=== PATIENT | male | born 1980 | race Caucasian/White ===

== ENCOUNTER 2024-04-08 13:07 | Inpatient (IN) | payer MEDICARE, OTHER ==
[~2024-04-08] VITALS: Ht 170.2 cm; Wt 125.9 kg
[~2024-04-08 13:07] MED LIST: FLUO60SO3 TP
[2024-04-08] MEDS: ONDANSETRON HCL/PF 4 MG/2 ML VIAL IVP ONE (14:15)
[2024-04-08] MEDS ORDERED: MORPHINE SULFATE INJ 4 MG/ML DISP.SYRIN ONE (14:17)
[2024-04-08] MEDS ORDERED: ONDANSETRON HCL/PF 4 MG/2 ML VIAL ONE (14:17)
[2024-04-08] MEDS: MORPHINE SULFATE INJ 2 MG/ML DISP.SYRIN IV ONE (14:20)
[2024-04-08] MEDS: IV NS 0.9% 1,000 ML BAG IV ONE (14:25)
[2024-04-08 14:29] LABS: BASOPHILS % (AUTO) 0.4 % (0.0-2.0); HEMATOCRIT 43 % (39-51); HEMOGLOBIN 14.1 g/dL (13.5-17.5); LYMPHOCYTES # (AUTO) 1.1 K/uL (0.8-4.8); MEAN CORPUSCULAR HEMOGLOBIN 31 PG (26.0-33.0); MEAN CORPUSCULAR HGB CONC 33 g/dl (31.0-36.0); MEAN CORPUSCULAR VOLUME 94 fL (80-96); MONOCYTES # (AUTO) 1.1 K/uL (0.1-1.30); MONOCYTES % (AUTO) 10.7 % (2.0-12.0); NEUTROPHILS # (AUTO) 8.4 K/uL (1.8-8.9); NEUTROPHILS % (AUTO) 78.9 % (43.0-81.0); PLATELET COUNT (AUTO) 206 K/uL (150-450); RED BLOOD CELL COUNT(AUTO) 4.54 MIL/uL (4.5-6.0); RED CELL DISTRIBUTION WIDTH 12.9 % (11.5-15.0); WHITE BLOOD COUNT (AUTO) 10.6 K/uL (4.3-11.0)
[2024-04-08 14:42] LABS: CREATININE 0.9 mg/dL (0.6-1.3); POTASSIUM 3.9 mmol/L (3.5-5.1)
[2024-04-08 14:49] LABS: ALBUMIN 3.7 g/dL (3.4-5.0); BILIRUBIN,DIRECT 0.2 mg/dL (0.0-0.2); BILIRUBIN,TOTAL 0.4 mg/dL (0.2-1.0); TOTAL PROTEIN, SERUM 7.9 g/dL (6.4-8.2)
[2024-04-08] MEDS: CEFEPIME 2 GM in IV D5W 100 ML IV STA (15:51)
[2024-04-08] MEDS ORDERED: Z GUARD REMEDY 4 OZ OINT TP PRN (16:30)
[2024-04-08] MEDS ORDERED: MAG HYDROX/AL HYDROX/SIMETH 30 ML UDC PO PRN (16:30)
[2024-04-08] MEDS: METRONIDAZOLE 500MG/ NS 100ML 500 MG in PREMIX 1 EA IV SCH (16:30)
[2024-04-08] MEDS ORDERED: MAGNESIUM HYDROXIDE 30 ML UDC PO PRN (16:30)
[2024-04-08] MEDS ORDERED: LORA2TAB95 PO (16:36)
[2024-04-08] MEDS ORDERED: BACL10TA PO (16:36)
[2024-04-08] MEDS ORDERED: CARB200C6 PO (16:36)
[2024-04-08] MEDS ORDERED: ZOLP10TA2 PO (16:36)
[2024-04-08] MEDS ORDERED: RISP4TAB70 PO (16:36)
[2024-04-08] MEDS ORDERED: MULT-213 PO (16:36)
[2024-04-08] MEDS ORDERED: DIVA-78 PO (16:36)
[2024-04-08] MEDS ORDERED: ACET325T53 PO (16:36)
[2024-04-08] MEDS ORDERED: SENN-261 PO (16:36)
[2024-04-08] MEDS ORDERED: QUET400T PO (16:36)
[2024-04-08] MEDS ORDERED: DOCU100C36 PO (16:36)
[2024-04-08] MEDS ORDERED: POLY119P3 PO (16:36)
[2024-04-08] MEDS ORDERED: FISH1CAP16 PO (16:36)
[2024-04-08] MEDS ORDERED: TOLT4CAP14 PO (16:36)
[2024-04-08] MEDS ORDERED: MELA10TA7 PO (16:36)
[2024-04-08] MEDS ORDERED: KETO120S5 TP (16:36)
[2024-04-08] MEDS ORDERED: GABA-532 PO ×2 (16:36)
[2024-04-08] MEDS ORDERED: DIPH25TA27 PO (16:36)
[2024-04-08] MEDS ORDERED: GUAI237L98 PO (16:36)
[2024-04-08] MEDS ORDERED: ZONI100C42 PO (16:36)
[2024-04-08] MEDS: VANCOMYCIN 1 GM in IV D5W 250 ML IV ONE (19:58)
[2024-04-08 20:00] VITALS: BP 135/90; TEMP 98.2; O2SAT 94
[2024-04-08] MEDS ORDERED: METRONIDAZOLE 500MG/ NS 100ML 100 ML IV ONE (23:05)
[2024-04-09] MEDS: CEFEPIME 2 GM in IV D5W 100 ML IV SCH (00:04)
[2024-04-09 04:00] VITALS: BP 128/93; TEMP 98.6; O2SAT 94
[2024-04-09 06:57] LABS: CREATININE 0.8 mg/dL (0.6-1.3); MAGNESIUM 1.8 mg/dL (1.8-2.4); PHOSPHORUS 2.6 mg/dL (2.5-4.9); POTASSIUM 3.8 mmol/L (3.5-5.1)
[2024-04-09 07:04] LABS: BASOPHILS % (AUTO) 0.1 % (0.0-2.0); HEMATOCRIT 42 % (39-51); HEMOGLOBIN 13.9 g/dL (13.5-17.5); LYMPHOCYTES # (AUTO) 1.4 K/uL (0.8-4.8); LYMPHOCYTES % (AUTO) 10.7 % (20.0-44.0); MEAN CORPUSCULAR HEMOGLOBIN 31 PG (26.0-33.0); MEAN CORPUSCULAR HGB CONC 33 g/dl (31.0-36.0); MEAN CORPUSCULAR VOLUME 94 fL (80-96); MONOCYTES # (AUTO) 1.9 K/uL (0.1-1.30); MONOCYTES % (AUTO) 14.2 % (2.0-12.0); NEUTROPHILS # (AUTO) 10.1 K/uL (1.8-8.9); PLATELET COUNT (AUTO) 215 K/uL (150-450); RED BLOOD CELL COUNT(AUTO) 4.45 MIL/uL (4.5-6.0); WHITE BLOOD COUNT (AUTO) 13.5 K/uL (4.3-11.0)
[2024-04-09 08:00] VITALS: BP 148/84; TEMP 98.4; O2SAT 94
[2024-04-09] MEDS: ONDANSETRON HCL/PF 4 MG/2 ML VIAL IVP PRN (10:47)
[2024-04-09 16:00] VITALS: BP 127/93; TEMP 98.9; O2SAT 98
[2024-04-09 22:00] VITALS: BP 130/93; TEMP 99; O2SAT 95
[2024-04-10] VITALS (16 sets, daily range): BP systolic 130–155; BP diastolic 70–95; TEMP 98.8–101.5; O2SAT 92–100
[2024-04-10] MEDS: IV LR 1000 ML 1,000 ML IV PRN (01:36)
[2024-04-10] MEDS: IPRATROPIUM NEB FS 0.5 MG/2.5 ML AMPUL.NEB NEB SCH (03:29)
[2024-04-10] MEDS: ALBUTEROL FS 2.5 MG/3 ML VIAL.NEB NEB SCH (03:29)
[2024-04-10 06:55] LABS: BASOPHILS % (AUTO) 0.1 % (0.0-2.0); HEMATOCRIT 38 % (39-51); HEMOGLOBIN 12.2 g/dL (13.5-17.5); LYMPHOCYTES # (AUTO) 1.2 K/uL (0.8-4.8); LYMPHOCYTES % (AUTO) 8.4 % (20.0-44.0); MEAN CORPUSCULAR HEMOGLOBIN 31 PG (26.0-33.0); MEAN CORPUSCULAR HGB CONC 32 g/dl (31.0-36.0); MEAN CORPUSCULAR VOLUME 95 fL (80-96); MONOCYTES # (AUTO) 1.9 K/uL (0.1-1.30); MONOCYTES % (AUTO) 12.7 % (2.0-12.0); NEUTROPHILS # (AUTO) 11.6 K/uL (1.8-8.9); NEUTROPHILS % (AUTO) 78.8 % (43.0-81.0); PLATELET COUNT (AUTO) 192 K/uL (150-450); RED BLOOD CELL COUNT(AUTO) 3.99 MIL/uL (4.5-6.0); RED CELL DISTRIBUTION WIDTH 13.2 % (11.5-15.0); WHITE BLOOD COUNT (AUTO) 14.8 K/uL (4.3-11.0)
[2024-04-10 07:24] LABS: ALBUMIN 2.9 g/dL (3.4-5.0); BILIRUBIN,DIRECT 0.2 mg/dL (0.0-0.2); BILIRUBIN,TOTAL 0.4 mg/dL (0.2-1.0); CALCIUM, SERUM 8.9 mg/dL (8.5-10.1); CREATININE 0.8 mg/dL (0.6-1.3); MAGNESIUM 2.1 mg/dL (1.8-2.4); TOTAL PROTEIN, SERUM 7.3 g/dL (6.4-8.2)
[2024-04-10] MEDS: ACETAMINOPHEN 325 MG TABLET PO PRN (08:39)
[2024-04-10] MEDS: IV D5/0.45 NACL 1,000 ML IV ONE (14:43)
[2024-04-10] MEDS: QUETIAPINE FUMARATE 100 MG TABLET PO SCH (16:09)
[2024-04-10] MEDS: LORAZEPAM 1 MG TABLET PO SCH (16:09)
[2024-04-10] MEDS: risperiDONE 1 MG TABLET PO SCH (16:09)
[2024-04-10] MEDS: DIVALPROEX SODIUM 500 MG TABLET.DR PO SCH (16:10)
[2024-04-10] MEDS ORDERED: CARBAMAZEPINE 400 MG PO SCH (17:00)
[2024-04-10] MEDS: ZONISAMIDE 100 MG CAPSULE PO SCH (21:07)
[2024-04-11] VITALS (8 sets, daily range): BP systolic 138–141; BP diastolic 86–95; TEMP 98.6–99.3; O2SAT 95–98
[2024-04-11] MEDS: IV D5/0.45 NACL 1,000 ML IV PRN (10:27)
[2024-04-11] MEDS: CARBAMAZEPINE 200 MG TABLET PO SCH (10:44)
[2024-04-12] VITALS (14 sets, daily range): BP systolic 114–143; BP diastolic 76–89; TEMP 97.5–98.5; O2SAT 96–99
[2024-04-12] MEDS ORDERED: IOHEXOL-350 100 ML VIAL IV ONE (05:49)
[2024-04-12] MEDS ORDERED: CT SWABBABLE VALVE TRANS SET 1 EA INFUS.SET MC ONE (05:49)
[2024-04-12 07:33] LABS: BASOPHILS % (AUTO) 0.1 % (0.0-2.0); EOSINOPHILS # (AUTO) 0.1 K/uL (0.0-0.7); EOSINOPHILS % (AUTO) 0.6 % (0.0-6.0); HEMATOCRIT 36 % (39-51); HEMOGLOBIN 11.5 g/dL (13.5-17.5); LYMPHOCYTES # (AUTO) 1.9 K/uL (0.8-4.8); LYMPHOCYTES % (AUTO) 13.5 % (20.0-44.0); MEAN CORPUSCULAR HEMOGLOBIN 30 PG (26.0-33.0); MEAN CORPUSCULAR HGB CONC 32 g/dl (31.0-36.0); MEAN CORPUSCULAR VOLUME 95 fL (80-96); MONOCYTES # (AUTO) 1.8 K/uL (0.1-1.30); MONOCYTES % (AUTO) 12.4 % (2.0-12.0); NEUTROPHILS # (AUTO) 10.3 K/uL (1.8-8.9); NEUTROPHILS % (AUTO) 73.4 % (43.0-81.0); PLATELET COUNT (AUTO) 198 K/uL (150-450); RED BLOOD CELL COUNT(AUTO) 3.79 MIL/uL (4.5-6.0); RED CELL DISTRIBUTION WIDTH 13.2 % (11.5-15.0); WHITE BLOOD COUNT (AUTO) 14.1 K/uL (4.3-11.0)
[2024-04-12 07:45] LABS: CALCIUM, SERUM 9.1 mg/dL (8.5-10.1); CREATININE 0.8 mg/dL (0.6-1.3); POTASSIUM 4.2 mmol/L (3.5-5.1)
[2024-04-13] VITALS (21 sets, daily range): BP systolic 117–154; BP diastolic 67–95; TEMP 97.7–99.4; O2SAT 93–100
[2024-04-13 06:48] LABS: BASOPHILS % (AUTO) 0.1 % (0.0-2.0); EOSINOPHILS % (AUTO) 0.5 % (0.0-6.0); HEMATOCRIT 36 % (39-51); HEMOGLOBIN 11.9 g/dL (13.5-17.5); LYMPHOCYTES # (AUTO) 0.9 K/uL (0.8-4.8); LYMPHOCYTES % (AUTO) 10.2 % (20.0-44.0); MEAN CORPUSCULAR HEMOGLOBIN 31 PG (26.0-33.0); MEAN CORPUSCULAR HGB CONC 33 g/dl (31.0-36.0); MEAN CORPUSCULAR VOLUME 94 fL (80-96); MONOCYTES % (AUTO) 11.1 % (2.0-12.0); NEUTROPHILS # (AUTO) 6.8 K/uL (1.8-8.9); NEUTROPHILS % (AUTO) 78.1 % (43.0-81.0); PLATELET COUNT (AUTO) 239 K/uL (150-450); RED BLOOD CELL COUNT(AUTO) 3.82 MIL/uL (4.5-6.0); RED CELL DISTRIBUTION WIDTH 13.2 % (11.5-15.0); WHITE BLOOD COUNT (AUTO) 8.8 K/uL (4.3-11.0)
[2024-04-13 06:54] LABS: INR 1.09 (0.91-1.10); PARTIAL THROMBOPLASTIN TIME 32.7 SEC (24.3-34.3); PROTHROMBIN TIME 11.5 SECS (9.2-11.1)
[2024-04-13 07:30] LABS: BILIRUBIN,DIRECT 0.1 mg/dL (0.0-0.2); BILIRUBIN,TOTAL 0.3 mg/dL (0.2-1.0); CALCIUM, SERUM 8.8 mg/dL (8.5-10.1); CREATININE 0.6 mg/dL (0.6-1.3); POTASSIUM 4.1 mmol/L (3.5-5.1)
[2024-04-13 08:13] LABS: LYMPHOCYTES % (MANUAL) 8 % (16-48); MONOCYTES % (MANUAL) 9 % (0-11.0); NEUTROPHILS % (MANUAL) 83 (42-76)
[2024-04-13 08:15] LABS: PLATELET ESTIMATE ADEQUATE
[2024-04-13 10:26] LABS: ALBUMIN 2.3 g/dL (3.4-5.0)
[2024-04-13] MEDS ORDERED: LIDOCAINE 1%-EPI 1:100,000 20 ML VIAL ONE (11:30)
[2024-04-13] MEDS ORDERED: BUPIVACAINE 0.5 % PF 150 MG/30 ML VIAL ONE (11:30)
[2024-04-13] MEDS ORDERED: ANESTHESIA TRAY IN PYXIS 1 EA TRAY MC ONE (11:30)
[2024-04-13] MEDS ORDERED: BACITRACIN ZINC OINT (15 GM) 15 GM TUBE TP ONE (11:30)
[2024-04-13] MEDS ORDERED: LIDOCAINE 2% JEL UROJET 10 ML MM ONE (12:00)
[2024-04-13] MEDS ORDERED: ROCURONIUM BROMIDE 50 MG/5 ML ONE ×2 (12:00→14:33)
[2024-04-13] MEDS ORDERED: FAMOTIDINE/PF INJ 20 MG/2 ML VIAL IV ONE (12:00)
[2024-04-13] MEDS ORDERED: FENTANYL PF 100MCG/2ML AMPUL ONE (12:00)
[2024-04-13] MEDS ORDERED: ALBUTEROL SULFATE 8 GM HFA.AER.AD ONE (12:08)
[2024-04-13] MEDS ORDERED: ALBUTEROL FS 2.5 MG/3 ML VIAL.NEB ONE (12:08)
[2024-04-13] MEDS ORDERED: MIDAZOLAM HCL 2 MG/2ML VIAL ONE (12:21)
[2024-04-13] MEDS: VALPROATE 1,000 MG in IV D5W 100 ML IV ONE (12:30)
[2024-04-13] MEDS ORDERED: PHYTONADIONE INJ 10 MG/1 ML AMPUL ONE (13:18)
[2024-04-13] MEDS ORDERED: TRANEXAMIC ACID 1,000 MG/10 ML VIAL ONE ×2 (13:35→13:39)
[2024-04-13] MEDS ORDERED: HYDROMORPHONE INJ 2 MG/ML DISP.SYRIN ONE (14:01)
[2024-04-13] MEDS ORDERED: ALBUMIN 5% 500 ML IV ONE (14:01)
[2024-04-13] MEDS ORDERED: THROMBIN (BOVINE) 5,000 UNITS VIAL TP ONE ×2 (14:23→14:43)
[2024-04-13] MEDS ORDERED: GELATIN SPONGE,ABSORBABLE 1 EA SPONGE TP ONE (14:23)
[2024-04-13] MEDS ORDERED: CELLULOSE,OXIDIZED 1 EA PACK MC ONE (14:52)
[2024-04-13] MEDS ORDERED: SUCCINYLCHOLINE CHLORIDE 20 MG/ML VIAL ONE (15:45)
[2024-04-13] MEDS: PROPOFOL 100 ML IV PRN (16:51)
[2024-04-13 17:37] LABS: ABG BASE EXCESS -4.2 mmol/L (-2.0-3.0); ABG PCO2 44.6 mmHg (35.0-48.0); ABG PO2 130.6 mmHg (83.0-108.0); ABG TOTAL HEMOGLOBIN 11.5 G/dL (13.5-17.5); COHb 0.1 % (0.5-1.5); MetHb 0.3 % (0.0-1.5); O2Hb 97.6 % (94.0-97.0); SITE, ABG RIGHT RADIAL; VT, ABG 550 mL
[2024-04-14] VITALS (43 sets, daily range): BP systolic 113–138; BP diastolic 60–85; TEMP 97.7–100.3; O2SAT 93–100
[2024-04-14] MEDS: MORPHINE SULFATE INJ 2 MG/ML DISP.SYRIN IV PRN (01:22)
[2024-04-14 05:23] LABS: BASOPHILS % (AUTO) 0.2 % (0.0-2.0); EOSINOPHILS # (AUTO) 0.1 K/uL (0.0-0.7); EOSINOPHILS % (AUTO) 0.8 % (0.0-6.0); HEMATOCRIT 30 % (39-51); HEMOGLOBIN 10.4 g/dL (13.5-17.5); LYMPHOCYTES # (AUTO) 1.3 K/uL (0.8-4.8); LYMPHOCYTES % (AUTO) 14.2 % (20.0-44.0); MEAN CORPUSCULAR HEMOGLOBIN 32 PG (26.0-33.0); MEAN CORPUSCULAR HGB CONC 35 g/dl (31.0-36.0); MEAN CORPUSCULAR VOLUME 93 fL (80-96); MONOCYTES # (AUTO) 1.6 K/uL (0.1-1.30); MONOCYTES % (AUTO) 17.8 % (2.0-12.0); NEUTROPHILS # (AUTO) 6.1 K/uL (1.8-8.9); PLATELET COUNT (AUTO) 242 K/uL (150-450); RED BLOOD CELL COUNT(AUTO) 3.21 MIL/uL (4.5-6.0); RED CELL DISTRIBUTION WIDTH 13.7 % (11.5-15.0); WHITE BLOOD COUNT (AUTO) 9.2 K/uL (4.3-11.0)
[2024-04-14 05:45] LABS: EOSINOPHILS % (MANUAL) 1 % (0-4); LYMPHOCYTES % (MANUAL) 14 % (16-48); MONOCYTES % (MANUAL) 17 % (0-11.0); NEUTROPHILS % (MANUAL) 68 (42-76)
[2024-04-14 05:46] LABS: ANISOCYTOSIS 1+; PLATELET ESTIMATE ADEQUATE
[2024-04-14] MEDS: ENOXAPARIN SODIUM 40 MG/0.4 ML DISP.SYRIN SQ SCH (11:06)
[2024-04-15] VITALS (48 sets, daily range): BP systolic 82–141; BP diastolic 52–113; TEMP 98.4–99; O2SAT 90–100
[2024-04-15 03:59] LABS: BASOPHILS % (AUTO) 0.3 % (0.0-2.0); EOSINOPHILS # (AUTO) 0.2 K/uL (0.0-0.7); EOSINOPHILS % (AUTO) 1.8 % (0.0-6.0); HEMATOCRIT 31 % (39-51); HEMOGLOBIN 10.2 g/dL (13.5-17.5); LYMPHOCYTES # (AUTO) 1.9 K/uL (0.8-4.8); LYMPHOCYTES % (AUTO) 21.5 % (20.0-44.0); MEAN CORPUSCULAR HEMOGLOBIN 31 PG (26.0-33.0); MEAN CORPUSCULAR HGB CONC 33 g/dl (31.0-36.0); MEAN CORPUSCULAR VOLUME 95 fL (80-96); MONOCYTES # (AUTO) 1.4 K/uL (0.1-1.30); MONOCYTES % (AUTO) 16.1 % (2.0-12.0); NEUTROPHILS # (AUTO) 5.3 K/uL (1.8-8.9); NEUTROPHILS % (AUTO) 60.3 % (43.0-81.0); PLATELET COUNT (AUTO) 294 K/uL (150-450); RED BLOOD CELL COUNT(AUTO) 3.25 MIL/uL (4.5-6.0); RED CELL DISTRIBUTION WIDTH 13.4 % (11.5-15.0); WHITE BLOOD COUNT (AUTO) 8.8 K/uL (4.3-11.0)
[2024-04-15 04:10] LABS: CALCIUM, SERUM 8.2 mg/dL (8.5-10.1); CREATININE 0.6 mg/dL (0.6-1.3); POTASSIUM 3.4 mmol/L (3.5-5.1)
[2024-04-15 04:40] LABS: ANISOCYTOSIS 1+; EOSINOPHILS % (MANUAL) 1 % (0-4); LYMPHOCYTES % (MANUAL) 19 % (16-48); MONOCYTES % (MANUAL) 14 % (0-11.0); NEUTROPHILS % (MANUAL) 66 (42-76); PLATELET ESTIMATE ADEQUATE
[2024-04-15] MEDS ORDERED: POTASSIUM CL. PREMIX PERIPHER. 50 ML IV SCH (08:30)
[2024-04-15] MEDS: POTASSIUM CL. PREMIX PERIPHER. 50 ML IV SCH (08:32)
[2024-04-15 10:40] LABS: ABG BASE EXCESS 0.6 mmol/L (-2.0-3.0); ABG OXYGEN SATURATION 97.2 % (94.0-98.0); ABG PCO2 36.1 mmHg (35.0-48.0); ABG PH 7.447 (7.350-7.450); ABG PO2 93.7 mmHg (83.0-108.0); ABG TOTAL HEMOGLOBIN 11.5 G/dL (13.5-17.5); COHb 0.3 % (0.5-1.5); O2Hb 96.9 % (94.0-97.0); SITE, ABG RIGHT RADIAL; VT, ABG 550 mL
[2024-04-15] MEDS ORDERED: DC PROPOFOL WHEN EXTUBATED XX PRN (11:00)
[2024-04-15] MEDS: LORAZEPAM 1 MG TABLET PO PRN (16:32)
[2024-04-16] VITALS (36 sets, daily range): BP systolic 119–146; BP diastolic 74–118; TEMP 98.2–98.8; O2SAT 95–100
[2024-04-16] MEDS: IV NS 0.9% 250 ML IV PRN (04:38)
[2024-04-16 09:15] LABS: BASOPHILS % (AUTO) 0.2 % (0.0-2.0); EOSINOPHILS # (AUTO) 0.1 K/uL (0.0-0.7); EOSINOPHILS % (AUTO) 1.7 % (0.0-6.0); HEMATOCRIT 32 % (39-51); HEMOGLOBIN 10.4 g/dL (13.5-17.5); LYMPHOCYTES # (AUTO) 1.6 K/uL (0.8-4.8); LYMPHOCYTES % (AUTO) 18.5 % (20.0-44.0); MEAN CORPUSCULAR HEMOGLOBIN 31 PG (26.0-33.0); MEAN CORPUSCULAR HGB CONC 33 g/dl (31.0-36.0); MEAN CORPUSCULAR VOLUME 94 fL (80-96); MONOCYTES # (AUTO) 1.2 K/uL (0.1-1.30); MONOCYTES % (AUTO) 14.4 % (2.0-12.0); NEUTROPHILS # (AUTO) 5.6 K/uL (1.8-8.9); NEUTROPHILS % (AUTO) 65.2 % (43.0-81.0); PLATELET COUNT (AUTO) 415 K/uL (150-450); RED BLOOD CELL COUNT(AUTO) 3.37 MIL/uL (4.5-6.0); RED CELL DISTRIBUTION WIDTH 13.8 % (11.5-15.0); WHITE BLOOD COUNT (AUTO) 8.7 K/uL (4.3-11.0)
[2024-04-16 09:53] LABS: CALCIUM, SERUM 8.1 mg/dL (8.5-10.1); CREATININE 0.6 mg/dL (0.6-1.3); POTASSIUM 3.6 mmol/L (3.5-5.1)
[2024-04-16 10:00] LABS: ALBUMIN 2.3 g/dL (3.4-5.0); BILIRUBIN,DIRECT 0.1 mg/dL (0.0-0.2); BILIRUBIN,TOTAL 0.4 mg/dL (0.2-1.0); TOTAL PROTEIN, SERUM 6.7 g/dL (6.4-8.2)
[2024-04-17] VITALS (17 sets, daily range): BP systolic 128–139; BP diastolic 72–93; TEMP 97.9–99.9; O2SAT 93–100
[2024-04-17 07:35] LABS: BASOPHILS # (AUTO) 0.1 K/uL (0.0-0.2); BASOPHILS % (AUTO) 0.5 % (0.0-2.0); EOSINOPHILS # (AUTO) 0.2 K/uL (0.0-0.7); EOSINOPHILS % (AUTO) 2.1 % (0.0-6.0); HEMATOCRIT 33 % (39-51); HEMOGLOBIN 10.7 g/dL (13.5-17.5); LYMPHOCYTES # (AUTO) 2.4 K/uL (0.8-4.8); LYMPHOCYTES % (AUTO) 23.1 % (20.0-44.0); MEAN CORPUSCULAR HEMOGLOBIN 30 PG (26.0-33.0); MEAN CORPUSCULAR HGB CONC 32 g/dl (31.0-36.0); MEAN CORPUSCULAR VOLUME 94 fL (80-96); MONOCYTES # (AUTO) 1.3 K/uL (0.1-1.30); MONOCYTES % (AUTO) 13.1 % (2.0-12.0); NEUTROPHILS # (AUTO) 6.3 K/uL (1.8-8.9); NEUTROPHILS % (AUTO) 61.2 % (43.0-81.0); PLATELET COUNT (AUTO) 510 K/uL (150-450); RED BLOOD CELL COUNT(AUTO) 3.52 MIL/uL (4.5-6.0); RED CELL DISTRIBUTION WIDTH 13.5 % (11.5-15.0); WHITE BLOOD COUNT (AUTO) 10.3 K/uL (4.3-11.0)
[2024-04-17 08:07] LABS: CALCIUM, SERUM 8.2 mg/dL (8.5-10.1); CREATININE 0.6 mg/dL (0.6-1.3); POTASSIUM 3.6 mmol/L (3.5-5.1)
[2024-04-17] MEDS: NA PHOS,M-B/NA PHOS,DI-BA 1 EA ENEMA RC PRN (16:38)
[2024-04-18] VITALS (15 sets, daily range): BP systolic 130–145; BP diastolic 87–95; TEMP 97.9–98.8; O2SAT 92–99
[2024-04-18 07:22] LABS: BASOPHILS % (AUTO) 0.4 % (0.0-2.0); EOSINOPHILS # (AUTO) 0.2 K/uL (0.0-0.7); EOSINOPHILS % (AUTO) 1.5 % (0.0-6.0); HEMATOCRIT 31 % (39-51); HEMOGLOBIN 10.3 g/dL (13.5-17.5); LYMPHOCYTES # (AUTO) 2.1 K/uL (0.8-4.8); LYMPHOCYTES % (AUTO) 20.6 % (20.0-44.0); MEAN CORPUSCULAR HEMOGLOBIN 31 PG (26.0-33.0); MEAN CORPUSCULAR HGB CONC 33 g/dl (31.0-36.0); MEAN CORPUSCULAR VOLUME 93 fL (80-96); MONOCYTES # (AUTO) 1.2 K/uL (0.1-1.30); MONOCYTES % (AUTO) 11.3 % (2.0-12.0); NEUTROPHILS # (AUTO) 6.8 K/uL (1.8-8.9); NEUTROPHILS % (AUTO) 66.2 % (43.0-81.0); PLATELET COUNT (AUTO) 571 K/uL (150-450); RED BLOOD CELL COUNT(AUTO) 3.34 MIL/uL (4.5-6.0); RED CELL DISTRIBUTION WIDTH 13.5 % (11.5-15.0); WHITE BLOOD COUNT (AUTO) 10.3 K/uL (4.3-11.0)
[2024-04-18 08:03] LABS: ALBUMIN 2.5 g/dL (3.4-5.0); BILIRUBIN,DIRECT 0.1 mg/dL (0.0-0.2); BILIRUBIN,TOTAL 0.3 mg/dL (0.2-1.0); CALCIUM, SERUM 8.2 mg/dL (8.5-10.1); CREATININE 0.6 mg/dL (0.6-1.3); POTASSIUM 3.7 mmol/L (3.5-5.1); TOTAL PROTEIN, SERUM 6.9 g/dL (6.4-8.2)
[2024-04-19] VITALS (21 sets, daily range): BP systolic 106–148; BP diastolic 67–98; TEMP 98.9–100.1; O2SAT 93–100
[2024-04-19 06:30] LABS: ABG BASE EXCESS -2.2 mmol/L (-2.0-3.0); ABG OXYGEN SATURATION 90.6 % (94.0-98.0); ABG PCO2 75.3 mmHg (35.0-48.0); ABG PH 7.182 (7.350-7.450); ABG PO2 78.6 mmHg (83.0-108.0); ABG TOTAL HEMOGLOBIN 12.3 G/dL (13.5-17.5); MetHb 0.2 % (0.0-1.5); O2Hb 90.4 % (94.0-97.0); SITE, ABG RIGHT RADIAL
[2024-04-19 09:33] LABS: ABG BASE EXCESS -2.2 mmol/L (-2.0-3.0); ABG OXYGEN SATURATION 96.2 % (94.0-98.0); ABG PCO2 44.5 mmHg (35.0-48.0); ABG PH 7.342 (7.350-7.450); ABG PO2 89.3 mmHg (83.0-108.0); ABG TOTAL HEMOGLOBIN 11.7 G/dL (13.5-17.5); COHb 0.3 % (0.5-1.5); MetHb 0.3 % (0.0-1.5); O2Hb 95.6 % (94.0-97.0)
[2024-04-19 11:19] LABS: BASOPHILS % (AUTO) 0.2 % (0.0-2.0); HEMATOCRIT 33 % (39-51); LYMPHOCYTES # (AUTO) 0.8 K/uL (0.8-4.8); MEAN CORPUSCULAR HEMOGLOBIN 31 PG (26.0-33.0); MEAN CORPUSCULAR HGB CONC 33 g/dl (31.0-36.0); MEAN CORPUSCULAR VOLUME 93 fL (80-96); MONOCYTES # (AUTO) 0.6 K/uL (0.1-1.30); MONOCYTES % (AUTO) 3.3 % (2.0-12.0); NEUTROPHILS # (AUTO) 17.7 K/uL (1.8-8.9); NEUTROPHILS % (AUTO) 92.5 % (43.0-81.0); PLATELET COUNT (AUTO) 650 K/uL (150-450); RED BLOOD CELL COUNT(AUTO) 3.55 MIL/uL (4.5-6.0); RED CELL DISTRIBUTION WIDTH 13.7 % (11.5-15.0); WHITE BLOOD COUNT (AUTO) 19.1 K/uL (4.3-11.0)
[2024-04-19] MEDS: methylPREDNISolone SOD SUCC 125 MG/2ML VIAL IV SCH (11:19)
[2024-04-19] MEDS: METRONIDAZOLE 500 MG TABLET PO SCH (12:07)
[2024-04-19 13:46] LABS: BAND % (MANUAL) 6 % (0.0-5.0); LYMPHOCYTES % (MANUAL) 4 % (16-48); MONOCYTES % (MANUAL) 3 % (0-11.0); MYELOCYTES % 2 % (0-0); NEUTROPHILS % (MANUAL) 85 (42-76)
[2024-04-19 13:47] LABS: PLATELET ESTIMATE INCREASED
[2024-04-19 13:50] LABS: STOMATOCYTES 1+
[2024-04-20] VITALS (33 sets, daily range): BP systolic 110–142; BP diastolic 58–100; TEMP 98.8–101; O2SAT 80–100
[2024-04-20 04:43] LABS: BASOPHILS % (AUTO) 0.1 % (0.0-2.0); HEMATOCRIT 29 % (39-51); HEMOGLOBIN 9.6 g/dL (13.5-17.5); LYMPHOCYTES # (AUTO) 1.4 K/uL (0.8-4.8); MEAN CORPUSCULAR HEMOGLOBIN 31 PG (26.0-33.0); MEAN CORPUSCULAR HGB CONC 33 g/dl (31.0-36.0); MEAN CORPUSCULAR VOLUME 95 fL (80-96); NEUTROPHILS # (AUTO) 17.1 K/uL (1.8-8.9); NEUTROPHILS % (AUTO) 87.9 % (43.0-81.0); PLATELET COUNT (AUTO) 601 K/uL (150-450); RED BLOOD CELL COUNT(AUTO) 3.09 MIL/uL (4.5-6.0); RED CELL DISTRIBUTION WIDTH 13.7 % (11.5-15.0); WHITE BLOOD COUNT (AUTO) 19.5 K/uL (4.3-11.0)
[2024-04-20 04:54] LABS: CALCIUM, SERUM 9.1 mg/dL (8.5-10.1); CREATININE 0.7 mg/dL (0.6-1.3); POTASSIUM 4.3 mmol/L (3.5-5.1)
[2024-04-20 10:00] LABS: ABG BASE EXCESS 2.5 mmol/L (-2.0-3.0); ABG OXYGEN SATURATION 91.9 % (94.0-98.0); ABG PCO2 45.6 mmHg (35.0-48.0); ABG PH 7.401 (7.350-7.450); ABG PO2 64.9 mmHg (83.0-108.0); ABG TOTAL HEMOGLOBIN 10.6 G/dL (13.5-17.5); COHb 0.3 % (0.5-1.5); MetHb 0.3 % (0.0-1.5); O2Hb 91.3 % (94.0-97.0); SITE, ABG LEFT RADIAL
[2024-04-21] VITALS (37 sets, daily range): BP systolic 114–155; BP diastolic 67–101; TEMP 99.2–100.5; O2SAT 95–100
[2024-04-21 04:37] LABS: BASOPHILS % (AUTO) 0.1 % (0.0-2.0); EOSINOPHILS % (AUTO) 0.1 % (0.0-6.0); HEMATOCRIT 30 % (39-51); HEMOGLOBIN 9.4 g/dL (13.5-17.5); LYMPHOCYTES # (AUTO) 2.9 K/uL (0.8-4.8); MEAN CORPUSCULAR HEMOGLOBIN 30 PG (26.0-33.0); MEAN CORPUSCULAR HGB CONC 31 g/dl (31.0-36.0); MEAN CORPUSCULAR VOLUME 97 fL (80-96); MONOCYTES # (AUTO) 1.8 K/uL (0.1-1.30); MONOCYTES % (AUTO) 7.3 % (2.0-12.0); NEUTROPHILS # (AUTO) 19.5 K/uL (1.8-8.9); NEUTROPHILS % (AUTO) 80.5 % (43.0-81.0); PLATELET COUNT (AUTO) 711 K/uL (150-450); RED BLOOD CELL COUNT(AUTO) 3.09 MIL/uL (4.5-6.0); RED CELL DISTRIBUTION WIDTH 14.5 % (11.5-15.0); WHITE BLOOD COUNT (AUTO) 24.2 K/uL (4.3-11.0)
[2024-04-21 04:42] LABS: ABG BASE EXCESS 4.3 mmol/L (-2.0-3.0); ABG OXYGEN SATURATION 86.3 % (94.0-98.0); ABG PCO2 65.3 mmHg (35.0-48.0); ABG PH 7.307 (7.350-7.450); ABG PO2 58.7 mmHg (83.0-108.0); ABG TOTAL HEMOGLOBIN 10.5 G/dL (13.5-17.5); MetHb 0.3 % (0.0-1.5); SITE, ABG RIGHT RADIAL
[2024-04-21 04:46] LABS: CREATININE 0.8 mg/dL (0.6-1.3); POTASSIUM 4.8 mmol/L (3.5-5.1)
[2024-04-22] VITALS (32 sets, daily range): BP systolic 105–160; BP diastolic 59–98; TEMP 98.8–99.6; O2SAT 91–100
[2024-04-22 04:38] LABS: BASOPHILS % (AUTO) 0.3 % (0.0-2.0); EOSINOPHILS # (AUTO) 0.2 K/uL (0.0-0.7); EOSINOPHILS % (AUTO) 1.2 % (0.0-6.0); HEMATOCRIT 23 % (39-51); HEMOGLOBIN 7.6 g/dL (13.5-17.5); LYMPHOCYTES % (AUTO) 15.1 % (20.0-44.0); MEAN CORPUSCULAR HEMOGLOBIN 31 PG (26.0-33.0); MEAN CORPUSCULAR HGB CONC 33 g/dl (31.0-36.0); MEAN CORPUSCULAR VOLUME 94 fL (80-96); MONOCYTES # (AUTO) 1.2 K/uL (0.1-1.30); MONOCYTES % (AUTO) 8.8 % (2.0-12.0); NEUTROPHILS % (AUTO) 74.6 % (43.0-81.0); PLATELET COUNT (AUTO) 559 K/uL (150-450); RED BLOOD CELL COUNT(AUTO) 2.46 MIL/uL (4.5-6.0); RED CELL DISTRIBUTION WIDTH 13.9 % (11.5-15.0); WHITE BLOOD COUNT (AUTO) 13.4 K/uL (4.3-11.0)
[2024-04-22 04:47] LABS: CALCIUM, SERUM 8.4 mg/dL (8.5-10.1); CREATININE 0.6 mg/dL (0.6-1.3); MAGNESIUM 2.2 mg/dL (1.8-2.4); PHOSPHORUS 2.3 mg/dL (2.5-4.9)
[2024-04-22 10:17] LABS: HEMOGLOBIN 8.2 g/dL (13.5-17.5)
[2024-04-22] MEDS: K PHOS NEUTRAL 250 MG TABLET PO ONE (15:15)
[2024-04-22] MEDS ORDERED: HYDROMORPHONE 1 MG/1 ML DISP.SYRIN IV PRN (22:00)
[2024-04-23] VITALS (43 sets, daily range): BP systolic 112–168; BP diastolic 33–122; TEMP 98.9–99.9; O2SAT 91–100
[2024-04-23 04:28] LABS: BASOPHILS % (AUTO) 0.4 % (0.0-2.0); EOSINOPHILS # (AUTO) 0.2 K/uL (0.0-0.7); EOSINOPHILS % (AUTO) 2.1 % (0.0-6.0); HEMATOCRIT 24 % (39-51); HEMOGLOBIN 7.9 g/dL (13.5-17.5); LYMPHOCYTES # (AUTO) 2.7 K/uL (0.8-4.8); LYMPHOCYTES % (AUTO) 25.9 % (20.0-44.0); MEAN CORPUSCULAR HEMOGLOBIN 32 PG (26.0-33.0); MEAN CORPUSCULAR HGB CONC 33 g/dl (31.0-36.0); MEAN CORPUSCULAR VOLUME 95 fL (80-96); MONOCYTES # (AUTO) 0.9 K/uL (0.1-1.30); MONOCYTES % (AUTO) 8.7 % (2.0-12.0); NEUTROPHILS # (AUTO) 6.7 K/uL (1.8-8.9); NEUTROPHILS % (AUTO) 62.9 % (43.0-81.0); PLATELET COUNT (AUTO) 622 K/uL (150-450); RED BLOOD CELL COUNT(AUTO) 2.52 MIL/uL (4.5-6.0); RED CELL DISTRIBUTION WIDTH 14.1 % (11.5-15.0); WHITE BLOOD COUNT (AUTO) 10.6 K/uL (4.3-11.0)
[2024-04-23 04:47] LABS: CALCIUM, SERUM 8.5 mg/dL (8.5-10.1); CREATININE 0.7 mg/dL (0.6-1.3); POTASSIUM 3.8 mmol/L (3.5-5.1)
[2024-04-24] VITALS (35 sets, daily range): BP systolic 104–134; BP diastolic 60–85; TEMP 97.2–99; O2SAT 50–100
[2024-04-24 04:32] LABS: BASOPHILS % (AUTO) 0.3 % (0.0-2.0); EOSINOPHILS # (AUTO) 0.1 K/uL (0.0-0.7); EOSINOPHILS % (AUTO) 0.5 % (0.0-6.0); HEMATOCRIT 22 % (39-51); HEMOGLOBIN 7.5 g/dL (13.5-17.5); LYMPHOCYTES # (AUTO) 2.7 K/uL (0.8-4.8); LYMPHOCYTES % (AUTO) 23.1 % (20.0-44.0); MEAN CORPUSCULAR HEMOGLOBIN 32 PG (26.0-33.0); MEAN CORPUSCULAR HGB CONC 34 g/dl (31.0-36.0); MEAN CORPUSCULAR VOLUME 95 fL (80-96); MONOCYTES # (AUTO) 0.9 K/uL (0.1-1.30); MONOCYTES % (AUTO) 8.1 % (2.0-12.0); NEUTROPHILS # (AUTO) 7.9 K/uL (1.8-8.9); PLATELET COUNT (AUTO) 589 K/uL (150-450); RED BLOOD CELL COUNT(AUTO) 2.34 MIL/uL (4.5-6.0); RED CELL DISTRIBUTION WIDTH 13.4 % (11.5-15.0); WHITE BLOOD COUNT (AUTO) 11.6 K/uL (4.3-11.0)
[2024-04-24 05:15] LABS: CALCIUM, SERUM 7.9 mg/dL (8.5-10.1); CREATININE 0.6 mg/dL (0.6-1.3)
[2024-04-25] VITALS (21 sets, daily range): BP systolic 94–158; BP diastolic 51–84; TEMP 97.2–98.8; O2SAT 94–99
[2024-04-25 05:50] LABS: CALCIUM, SERUM 8.2 mg/dL (8.5-10.1); CREATININE 0.6 mg/dL (0.6-1.3); POTASSIUM 3.9 mmol/L (3.5-5.1)
[2024-04-25 06:11] LABS: BASOPHILS % (AUTO) 0.3 % (0.0-2.0); EOSINOPHILS # (AUTO) 0.1 K/uL (0.0-0.7); EOSINOPHILS % (AUTO) 0.8 % (0.0-6.0); HEMATOCRIT 23 % (39-51); HEMOGLOBIN 7.7 g/dL (13.5-17.5); LYMPHOCYTES # (AUTO) 3.1 K/uL (0.8-4.8); LYMPHOCYTES % (AUTO) 27.1 % (20.0-44.0); MEAN CORPUSCULAR HEMOGLOBIN 31 PG (26.0-33.0); MEAN CORPUSCULAR HGB CONC 33 g/dl (31.0-36.0); MEAN CORPUSCULAR VOLUME 94 fL (80-96); MONOCYTES # (AUTO) 0.9 K/uL (0.1-1.30); MONOCYTES % (AUTO) 7.6 % (2.0-12.0); NEUTROPHILS # (AUTO) 7.3 K/uL (1.8-8.9); NEUTROPHILS % (AUTO) 64.2 % (43.0-81.0); PLATELET COUNT (AUTO) 645 K/uL (150-450); RED BLOOD CELL COUNT(AUTO) 2.49 MIL/uL (4.5-6.0); WHITE BLOOD COUNT (AUTO) 11.4 K/uL (4.3-11.0)
[2024-04-26] VITALS (12 sets, daily range): BP systolic 113–147; BP diastolic 69–97; TEMP 97.2–99; O2SAT 94–100
[2024-04-26 06:35] LABS: BASOPHILS % (AUTO) 0.3 % (0.0-2.0); EOSINOPHILS # (AUTO) 0.1 K/uL (0.0-0.7); EOSINOPHILS % (AUTO) 1.2 % (0.0-6.0); HEMATOCRIT 25 % (39-51); HEMOGLOBIN 8.4 g/dL (13.5-17.5); LYMPHOCYTES # (AUTO) 2.9 K/uL (0.8-4.8); LYMPHOCYTES % (AUTO) 25.5 % (20.0-44.0); MEAN CORPUSCULAR HEMOGLOBIN 32 PG (26.0-33.0); MEAN CORPUSCULAR HGB CONC 33 g/dl (31.0-36.0); MEAN CORPUSCULAR VOLUME 95 fL (80-96); MONOCYTES # (AUTO) 1.1 K/uL (0.1-1.30); MONOCYTES % (AUTO) 9.6 % (2.0-12.0); NEUTROPHILS # (AUTO) 7.3 K/uL (1.8-8.9); NEUTROPHILS % (AUTO) 63.4 % (43.0-81.0); PLATELET COUNT (AUTO) 621 K/uL (150-450); RED BLOOD CELL COUNT(AUTO) 2.68 MIL/uL (4.5-6.0); WHITE BLOOD COUNT (AUTO) 11.5 K/uL (4.3-11.0)
[2024-04-26 07:26] LABS: CALCIUM, SERUM 8.4 mg/dL (8.5-10.1); CREATININE 0.6 mg/dL (0.6-1.3); POTASSIUM 4.1 mmol/L (3.5-5.1)
[2024-04-26 12:42] LABS: THYROID STIMULATING HORMONE 2.31 uIU/mL (0.358-3.74); URIC ACID 2.6 mg/dL (2.6-7.2)
[2024-04-26 12:57] LABS: CALCIUM, SERUM 8.4 mg/dL (8.5-10.1); CREATININE 0.7 mg/dL (0.6-1.3); PHOSPHORUS 2.6 mg/dL (2.5-4.9)
[2024-04-27] VITALS (13 sets, daily range): BP systolic 108–125; BP diastolic 61–75; TEMP 97.8–98.8; O2SAT 95–100
[2024-04-28] VITALS (10 sets, daily range): BP systolic 112–122; BP diastolic 69–72; TEMP 98.1–98.8; O2SAT 94–98
[2024-04-28 06:47] LABS: BASOPHILS % (AUTO) 0.5 % (0.0-2.0); EOSINOPHILS # (AUTO) 0.2 K/uL (0.0-0.7); HEMATOCRIT 25 % (39-51); HEMOGLOBIN 8.4 g/dL (13.5-17.5); LYMPHOCYTES # (AUTO) 2.7 K/uL (0.8-4.8); LYMPHOCYTES % (AUTO) 30.8 % (20.0-44.0); MEAN CORPUSCULAR HEMOGLOBIN 32 PG (26.0-33.0); MEAN CORPUSCULAR HGB CONC 34 g/dl (31.0-36.0); MEAN CORPUSCULAR VOLUME 95 fL (80-96); MONOCYTES # (AUTO) 0.9 K/uL (0.1-1.30); MONOCYTES % (AUTO) 10.7 % (2.0-12.0); PLATELET COUNT (AUTO) 525 K/uL (150-450); RED CELL DISTRIBUTION WIDTH 14.9 % (11.5-15.0); WHITE BLOOD COUNT (AUTO) 8.9 K/uL (4.3-11.0)
[2024-04-28 07:01] LABS: CALCIUM, SERUM 8.4 mg/dL (8.5-10.1); CREATININE 0.7 mg/dL (0.6-1.3)
[2024-04-28 08:46] LABS: ABG OXYGEN SATURATION 91.6 % (94.0-98.0); ABG PCO2 39.9 mmHg (35.0-48.0); ABG PH 7.451 (7.350-7.450); ABG PO2 64.6 mmHg (83.0-108.0); ABG TOTAL HEMOGLOBIN 9.9 G/dL (13.5-17.5); COHb 0.3 % (0.5-1.5); MetHb 0.1 % (0.0-1.5); O2Hb 91.2 % (94.0-97.0)
[2024-04-28] MEDS ORDERED: PRED20TA PO (16:03)
== END 2024-04-28 17:58 | DRG 981 ==
LOC: ER 13:10 → MEDSG1 16:10 → ICU 04-13 15:13 → TELE1 04-16 16:39 → MEDSG1 04-17 09:59 → ICU 04-19 06:50 → TELE-TD 04-25 11:40 → TELE1 04-26 08:14 → MEDSG1 04-28 10:01
PROVIDERS: ADMIT Internal Medicine; ATTEND Internal Medicine
PROC: 0FT44ZZ Resection of Gallbladder, Percutaneous Endoscopic Approach (ICD-10-PCS; principal; 2024-04-13)
PROC: 0DNU3ZZ Release Omentum, Percutaneous Approach (ICD-10-PCS; 2024-04-13)
PROC: 5A09557 Assistance with Respiratory Ventilation, Greater than 96 Consecutive Hours, Continuous Positive Airway Pressure (ICD-10-PCS; 2024-04-19)
DX: J15.69 Pneumonia due to other Gram-negative bacteria (principal); J96.01 Acute respiratory failure with hypoxia; E87.1 Hypo-osmolality and hyponatremia; K80.00 Calculus of gallbladder with acute cholecystitis without obstruction; K82.1 Hydrops of gallbladder; Z68.41 Body mass index [BMI] 40.0-44.9, adult; J98.11 Atelectasis; G40.909 Epilepsy, unspecified, not intractable, without status epilepticus; Z87.820 Personal history of traumatic brain injury; F20.9 Schizophrenia, unspecified; K66.0 Peritoneal adhesions (postprocedural) (postinfection); K42.9 Umbilical hernia without obstruction or gangrene; Z79.899 Other long term (current) drug therapy; K40.90 Unilateral inguinal hernia, without obstruction or gangrene, not specified as recurrent; K62.9 Disease of anus and rectum, unspecified; G31.84 Mild cognitive impairment of uncertain or unknown etiology; G62.9 Polyneuropathy, unspecified; F41.9 Anxiety disorder, unspecified; F29 Unspecified psychosis not due to a substance or known physiological condition; E66.01 Morbid (severe) obesity due to excess calories; G47.33 Obstructive sleep apnea (adult) (pediatric); Y84.8 Other medical procedures as the cause of abnormal reaction of the patient, or of later complication, without mention of misadventure at the time of the procedure; Y92.89 Other specified places as the place of occurrence of the external cause
CPT/HCPCS: 31720; 36415; 36600; 71045-TC; 76705-TC; 78226; 80048-TC; 80076-TC; 82533; 82803-TC; 82962-TC; 83690-TC; 83735-TC; 84100-TC; 84443-TC; 84550-TC; 85025-TC; 85027-TC; 85730-TC; 86850-TC; 87081-TC; 88304-TC; 92526; 92611-TC; 93307-TC; 93970-TC; 94002-TC; 94003-TC; 94660; 94760-TC; 94762-TC; 94799-TC; 97110-TC; 97530-TC; A4216; A4223; A6403; A9537; G0378; J0330; J0690; J0692; J1100; J1171; J1650; J2250; J2270; J2405; J2704; J2919; J3010; J3370; J3430; J3480; J3490; J7030; J7040; J7050; J7060; J7120; P9045; Q9967

== ENCOUNTER 2024-06-23 15:00 | Inpatient (IN) | payer MEDICARE, OTHER ==
[~2024-06-23] VITALS: Ht 185.4 cm; Wt 122.6 kg
[~2024-06-23 15:00] MED LIST changes: +ACET325T53 PO; +BACL10TA PO; +CARB200C6 PO; +DIPH25TA27 PO; +DIVA-78 PO; +DOCU100C36 PO; +FISH1CAP16 PO; +GABA-532 PO; +GUAI237L98 PO; +KETO120S5 TP; +LORA2TAB95 PO; +MELA10TA7 PO; +MULT-213 PO; +POLY119P3 PO; +PRED20TA PO; +QUET400T PO; +RISP4TAB70 PO; +SENN-261 PO; +TOLT4CAP14 PO; +ZOLP10TA2 PO; +ZONI100C42 PO
[2024-06-23] MEDS: IV NS 0.9% 1,000 ML BAG IV ONE (16:00)
[2024-06-23 16:02] LABS: ABG BASE EXCESS -0.1 mmol/L (-2.0-3.0); ABG OXYGEN SATURATION 93.5 % (94.0-98.0); ABG PCO2 38.8 mmHg (35.0-48.0); ABG PH 7.415 (7.350-7.450); ABG PO2 68.8 mmHg (83.0-108.0); ABG TOTAL HEMOGLOBIN 12.8 G/dL (13.5-17.5); COHb 0.3 % (0.5-1.5); MetHb 0.2 % (0.0-1.5); SITE, ABG LEFT RADIAL
[2024-06-23 16:05] LABS: BASOPHILS % (AUTO) 0.3 % (0.0-2.0); EOSINOPHILS # (AUTO) 0.1 K/uL (0.0-0.7); EOSINOPHILS % (AUTO) 2.1 % (0.0-6.0); HEMATOCRIT 38 % (39-51); HEMOGLOBIN 12.2 g/dL (13.5-17.5); LYMPHOCYTES # (AUTO) 2.2 K/uL (0.8-4.8); LYMPHOCYTES % (AUTO) 35.9 % (20.0-44.0); MEAN CORPUSCULAR HEMOGLOBIN 30 PG (26.0-33.0); MEAN CORPUSCULAR HGB CONC 32 g/dl (31.0-36.0); MEAN CORPUSCULAR VOLUME 91 fL (80-96); MONOCYTES # (AUTO) 0.7 K/uL (0.1-1.30); MONOCYTES % (AUTO) 12.1 % (2.0-12.0); NEUTROPHILS % (AUTO) 49.6 % (43.0-81.0); PLATELET COUNT (AUTO) 252 K/uL (150-450); RED BLOOD CELL COUNT(AUTO) 4.13 MIL/uL (4.5-6.0); RED CELL DISTRIBUTION WIDTH 14.3 % (11.5-15.0)
[2024-06-23 16:14] LABS: INR 0.97 (0.91-1.10); PARTIAL THROMBOPLASTIN TIME 28.9 SEC (24.3-34.3)
[2024-06-23 16:16] LABS: CALCIUM, SERUM 8.5 mg/dL (8.5-10.1); CREATININE 0.8 mg/dL (0.6-1.3); POTASSIUM 3.7 mmol/L (3.5-5.1)
[2024-06-23] MEDS ORDERED: FOLI0.8T3 PO (16:20)
[2024-06-23] MEDS ORDERED: OXYB10TA30 PO (16:20)
[2024-06-23] MEDS ORDERED: THIA100T68 PO (16:20)
[2024-06-23] MEDS ORDERED: RISP3TAB61 PO (16:20)
[2024-06-23] MEDS ORDERED: QUET100T PO (16:20)
[2024-06-23 16:22] LABS: BILIRUBIN,DIRECT 0.1 mg/dL (0.0-0.2); BILIRUBIN,TOTAL 0.1 mg/dL (0.2-1.0); TOTAL PROTEIN, SERUM 7.7 g/dL (6.4-8.2)
[2024-06-23] MEDS ORDERED: PIPERACI/TAZO 3.375GM/D5W 50ML PB IV ONE (16:32)
[2024-06-23] MEDS: PIPERACILLIN /TAZOBACTAM 3.375 G in IV D5W 50 ML IV ONE (16:45)
[2024-06-23 17:44] VITALS: BP 128/67; TEMP 98.1; O2SAT 99
[2024-06-23 18:00] LABS: APPEARANCE,URINE CLEAR (CLEAR); BILIRUBIN,URINE NEGATIVE (NEGATIVE); BLOOD, URINE NEGATIVE Ery/uL (NEGATIVE); COLOR,URINE YELLOW (YELLOW); KETONES,URINE NEGATIVE (NEGATIVE); LEUKOCYTE ESTERASE ,URINE NEGATIVE (NEGATIVE); NITRITE, URINE NEGATIVE (NEGATIVE); PROTEIN,URINE NEGATIVE (NEGATIVE); UGLUCOSE NEGATIVE (NEGATIVE); UROBILINOGEN,URINE 0.2 EU/dL (0.2)
[2024-06-23] MEDS ORDERED: Z GUARD REMEDY 4 OZ OINT TP PRN (18:30)
[2024-06-23] MEDS ORDERED: ONDANSETRON HCL/PF 4 MG/2 ML VIAL IVP PRN (18:30)
[2024-06-23] MEDS ORDERED: ACETAMINOPHEN 325 MG TABLET PO PRN (18:30)
[2024-06-23] MEDS ORDERED: MAG HYDROX/AL HYDROX/SIMETH 30 ML UDC PO PRN (18:30)
[2024-06-23] MEDS ORDERED: MAGNESIUM HYDROXIDE 30 ML UDC PO PRN (18:30)
[2024-06-23] MEDS ORDERED: POLYETHYLENE GLYCOL 3350 17 GM POWD.PACK PO PRN (19:00)
[2024-06-23] MEDS: dexaMETHasone SOD PHOSPHATE 10 MG/ML VIAL IJ SCH (19:00)
[2024-06-23] MEDS: ENOXAPARIN SODIUM 40 MG/0.4 ML DISP.SYRIN SQ ONE (19:00)
[2024-06-23] MEDS: risperiDONE 1 MG TABLET PO SCH (19:03)
[2024-06-23 20:00] VITALS: BP 134/82; TEMP 98.6; O2SAT 96
[2024-06-24] VITALS: BP 136/89; TEMP 98.2; O2SAT 97
[2024-06-24] MEDS: ZONISAMIDE 100 MG CAPSULE PO SCH (00:26)
[2024-06-24] MEDS: ZOLPIDEM TARTRATE 10 MG TABLET PO SCH (00:27)
[2024-06-24] MEDS: SENNOSIDES 8.6 MG TABLET PO SCH (00:28)
[2024-06-24] MEDS: LORAZEPAM 1 MG TABLET PO SCH (00:28)
[2024-06-24] MEDS: GABAPENTIN 100 MG CAPSULE PO SCH ×2 (00:29→09:10)
[2024-06-24] MEDS: ZOSYN IVPB 3.375 G in IV D5W 50ml IV SCH (00:31)
[2024-06-24 04:00] VITALS: BP 138/79; TEMP 98; O2SAT 98
[2024-06-24 08:00] VITALS: BP 127/90; TEMP 97.7; O2SAT 96
[2024-06-24 08:23] LABS: BASOPHILS % (AUTO) 0.3 % (0.0-2.0); EOSINOPHILS # (AUTO) 0.1 K/uL (0.0-0.7); EOSINOPHILS % (AUTO) 1.6 % (0.0-6.0); HEMATOCRIT 36 % (39-51); HEMOGLOBIN 11.7 g/dL (13.5-17.5); LYMPHOCYTES # (AUTO) 2.1 K/uL (0.8-4.8); LYMPHOCYTES % (AUTO) 50.1 % (20.0-44.0); MEAN CORPUSCULAR HEMOGLOBIN 30 PG (26.0-33.0); MEAN CORPUSCULAR HGB CONC 33 g/dl (31.0-36.0); MEAN CORPUSCULAR VOLUME 90 fL (80-96); MONOCYTES # (AUTO) 0.5 K/uL (0.1-1.30); MONOCYTES % (AUTO) 12.6 % (2.0-12.0); NEUTROPHILS # (AUTO) 1.4 K/uL (1.8-8.9); NEUTROPHILS % (AUTO) 35.4 % (43.0-81.0); PLATELET COUNT (AUTO) 243 K/uL (150-450); RED BLOOD CELL COUNT(AUTO) 3.95 MIL/uL (4.5-6.0); RED CELL DISTRIBUTION WIDTH 14.2 % (11.5-15.0); WHITE BLOOD COUNT (AUTO) 4.1 K/uL (4.3-11.0)
[2024-06-24 08:35] LABS: CALCIUM, SERUM 8.6 mg/dL (8.5-10.1); CREATININE 0.6 mg/dL (0.6-1.3); MAGNESIUM 2.2 mg/dL (1.8-2.4); PHOSPHORUS 2.6 mg/dL (2.5-4.9); POTASSIUM 4.3 mmol/L (3.5-5.1)
[2024-06-24] MEDS: TOLTERODINE 2 MG CAP.SR PO SCH (09:09)
[2024-06-24] MEDS: QUETIAPINE FUMARATE 100 MG TABLET PO SCH (09:09)
[2024-06-24] MEDS: DIVALPROEX SODIUM 500 MG TABLET.DR PO SCH (09:09)
[2024-06-24] MEDS: QUETIAPINE FUMARATE 25 MG TABLET PO SCH (09:09)
[2024-06-24] MEDS: THIAMINE HCL 100 MG TABLET PO SCH (09:10)
[2024-06-24] MEDS: DOCUSATE SODIUM 100 MG CAPSULE PO SCH (09:10)
[2024-06-24] MEDS: CARBAMAZEPINE 200 MG TABLET PO SCH (09:10)
[2024-06-24] MEDS: FOLIC ACID 1 MG TABLET PO SCH (09:10)
[2024-06-24] MEDS: OXYBUTYNIN CHLORIDE 5 MG TABLET PO SCH (09:10)
[2024-06-24 12:00] VITALS: BP 130/93; TEMP 98.1; O2SAT 98
[2024-06-24] MEDS: ENOXAPARIN SODIUM 40 MG/0.4 ML DISP.SYRIN SQ SCH (15:32)
[2024-06-24 16:00] VITALS: BP 120/75; TEMP 97.5; O2SAT 99
[2024-06-24] MEDS: BACLOFEN (10 MG) 10 MG TABLET PO SCH (17:08)
[2024-06-24] MEDS: diphenhydrAMINE HCL 25 MG CAPSULE PO SCH (17:08)
[2024-06-24 20:00] VITALS: BP 136/96; TEMP 97.5; O2SAT 99
[2024-06-25] VITALS: BP 125/95; TEMP 97.2; O2SAT 99
[2024-06-25 04:00] VITALS: BP 136/90; TEMP 97.7; O2SAT 98
[2024-06-25 08:00] VITALS: BP 120/90; TEMP 98.1; O2SAT 99
[2024-06-25 09:00] VITALS: BP 120/90; TEMP 98.1; O2SAT 99
[2024-06-25 16:00] VITALS: BP 146/92; TEMP 98.2; O2SAT 95
[2024-06-25 20:00] VITALS: BP 112/80; TEMP 98.1; O2SAT 98
[2024-06-25] MEDS: LEVOFLOXACIN (250MG) 250 MG TABLET PO SCH (23:44)
[2024-06-26 04:00] VITALS: BP 114/78; TEMP 98.2; O2SAT 99
[2024-06-26 05:00] VITALS: BP 112/75; TEMP 98.2; O2SAT 99
[2024-06-26 13:00] VITALS: BP 140/92; TEMP 98.1; O2SAT 99
[2024-06-26 20:00] VITALS: BP 128/85; TEMP 97.5; O2SAT 98
[2024-06-27 08:00] VITALS: BP 147/87; TEMP 98.4; O2SAT 96
[2024-06-27 16:00] VITALS: BP 136/76; TEMP 98.3; O2SAT 97
[2024-06-27 20:00] VITALS: BP 113/88; TEMP 97.3; O2SAT 97
[2024-06-28 04:00] VITALS: BP 135/86; TEMP 98.3; O2SAT 98
[2024-06-28 20:00] VITALS: BP 102/86; TEMP 97.5; O2SAT 97
[2024-06-29 21:26] VITALS: BP 143/94; TEMP 98.4; O2SAT 96
[2024-06-30 05:32] VITALS: BP 116/71; TEMP 97.7; O2SAT 96
== END 2024-06-30 17:04 | DRG 177 ==
LOC: ER 15:03 → TELE1 17:32 → MEDSG1 06-25 09:37
PROVIDERS: ADMIT Internal Medicine; ATTEND Internal Medicine
DX: U07.1 COVID-19 (principal); J12.82 Pneumonia due to coronavirus disease 2019; J96.01 Acute respiratory failure with hypoxia; G40.909 Epilepsy, unspecified, not intractable, without status epilepticus; Z87.820 Personal history of traumatic brain injury; Z79.899 Other long term (current) drug therapy; Z90.49 Acquired absence of other specified parts of digestive tract; G47.33 Obstructive sleep apnea (adult) (pediatric); G31.84 Mild cognitive impairment of uncertain or unknown etiology; F41.9 Anxiety disorder, unspecified; E66.9 Obesity, unspecified; Z68.35 Body mass index [BMI] 35.0-35.9, adult; F20.9 Schizophrenia, unspecified; J38.6 Stenosis of larynx
CPT/HCPCS: 36415; 71045-TC; 71250-TC; 80048-TC; 80076-TC; 82803-TC; 83605-TC; 83735-TC; 84100-TC; 85025-TC; 85378-TC; 85730-TC; 86140-TC; 87040-TC; 87081-TC; 87086-TC; 94640-TC; A4223; G0378; J1100; J1650; J2543; J7030; J7050; J7060; Q0163

== ENCOUNTER 2024-12-17 15:08 | Emergency (ER) | payer MEDICARE, OTHER ==
[~2024-12-17] VITALS: Ht 185.4 cm; Wt 106.6 kg
[~2024-12-17 15:08] MED LIST changes: -ACET325T53 PO; -FLUO60SO3 TP; +FOLI0.8T3 PO; -GUAI237L98 PO; -MELA10TA7 PO; +OXYB10TA30 PO; -PRED20TA PO; +QUET100T PO; -QUET400T PO; +RISP3TAB61 PO; -RISP4TAB70 PO; +THIA100T68 PO
[2024-12-17 15:14] VITALS: TEMP 98.2
[2024-12-17 15:53] LABS: PLATELET COUNT (AUTO) 272 K/uL (150-450); RED BLOOD CELL COUNT(AUTO) 5.05 MIL/uL (4.5-6.0); RED CELL DISTRIBUTION WIDTH 13.3 % (11.5-15.0); WHITE BLOOD COUNT (AUTO) 6.4 K/uL (4.3-11.0)
[2024-12-17] MEDS ORDERED: ONDANSETRON HCL/PF 4 MG/2 ML VIAL ONE (15:56)
[2024-12-17] MEDS: IV NS 0.9% 1,000 ML BAG IV ONE (16:00)
[2024-12-17] MEDS: ONDANSETRON HCL/PF 4 MG/2 ML VIAL IV ONE (16:00)
[2024-12-17 16:15] LABS: SODIUM SERUM 146.0 mmol/L (136-145)
[2024-12-17 16:19] LABS: CALCIUM, SERUM 8.6 mg/dL (8.5-10.1); CREATININE 0.8 mg/dL (0.6-1.3); UREA NITROGEN, BLOOD 17.0 mg/dL (7-18)
[2024-12-17 16:22] LABS: ASPARTATE AMINOTRANSFERASE 14.0 U/L (15-37); TOTAL PROTEIN, SERUM 8.5 g/dL (6.4-8.2)
[2024-12-17 16:25] LABS: LACTIC ACID 1.6 mmol/L (0.4-2.0)
[2024-12-17 16:51] LABS: LYMPHOCYTES % (MANUAL) 32 % (16-48); NEUTROPHILS % (MANUAL) 51 (42-76)
[2024-12-17 16:52] LABS: MONOCYTES % (MANUAL) 17 % (0-11.0); PLATELET ESTIMATE ADEQUATE
[2024-12-17 18:00] VITALS: BP 151/93; O2SAT 95
[2024-12-17 18:36] LABS: APPEARANCE,URINE CLEAR (CLEAR); BLOOD, URINE NEGATIVE Ery/uL (NEGATIVE); LEUKOCYTE ESTERASE ,URINE NEGATIVE (NEGATIVE); NITRITE, URINE NEGATIVE (NEGATIVE); UGLUCOSE NEGATIVE (NEGATIVE)
[2024-12-17] MEDS ORDERED: ONDA4TAB5 PO (18:58)
[2024-12-17 19:03] LABS: ADD URINE CULTURE YES; COARSE GRANULAR CASTS,URINE Many /LPF (None Seen)
[2024-12-17 19:04] LABS: SQUAMOUS EPITHELIAL CELL,UR Moderate /HPF (None Seen)
== END 2024-12-17 19:52 ==
LOC: ER 15:10
DX: K56.7 Ileus, unspecified (principal); R11.0 Nausea; R19.7 Diarrhea, unspecified; G40.909 Epilepsy, unspecified, not intractable, without status epilepticus; F20.9 Schizophrenia, unspecified; F79 Unspecified intellectual disabilities; Z79.899 Other long term (current) drug therapy; Z87.820 Personal history of traumatic brain injury
CPT/HCPCS: 99285; 74176; 96374; 96361; 85027; 80048; 83605; 83690; 80076; 85007; 81001; 36415; J2405; A4349 ×2